=== PATIENT | female | born 1980 | race Caucasian/White ===

== ENCOUNTER 2016-11-19 09:31 | Emergency (ER) | payer BC, MEDICAID ==
[2016-11-19] MEDS ORDERED: Ketorolac 30 MG/ML SDV IVPUSH ONE (09:58)
--- NOTE | 2016-11-19 10:04 | EDM.PDOC ---
ED HPI GENERAL MEDICAL PROBLEM - General Chief Complaint: Lower Extremity Injury/Pain Stated Complaint: LT LEG HURTS Time Seen by Provider: 11/19/16 09:35 - History of Present Illness INITIAL COMMENTS - FREE TEXT/NARRATIVE: HISTORY AND PHYSICAL: History of present illness: This is a 36-year-old female presenting to the emergency department complaining of left lower leg pain. Patient tells me she has a history of a fractured tibia requiring surgical intervention last year. She tells me that she began to experience pain in the exact spot of the break yesterday. She'll be she is having difficulty bending her knee. She is having difficulty bearing weight. She denies any trauma to the region. She denies any numbness or tingling. She denies any fevers chills nausea or vomiting. She has no other complaints. Review of systems: As per history of present illness and below otherwise all systems reviewed and negative. Past medical history: As per history of present illness and as reviewed below otherwise noncontributory. Surgical history: As per history of present illness and as reviewed below otherwise noncontributory. Social history: No reported history of drug or alcohol abuse. Family history: As per history of present illness and as reviewed below otherwise noncontributory. Physical exam: HEENT: Atraumatic, normocephalic, pupils reactive, negative for conjunctival pallor or scleral icterus, mucous membranes moist, throat clear, neck supple, nontender, trachea midline. Lungs: Clear to auscultation, breath sounds equal bilaterally, chest nontender. Heart: S1S2, regular, negative for clicks, rubs, or JVD. Abdomen: Soft, nondistended, nontender. Negative for masses or hepatosplenomegaly. Negative for costovertebral tenderness. Pelvis: Stable nontender. Genitourinary: Deferred. Rectal: Deferred. Extremities:Tenderness to palpation of the lateral aspect of the leg. No knee joint effusion. No tenderness to palpation. Patient was able to flex her knee with assistance. Ankle and hip exam grossly normal. Neuro: Awake, alert, oriented. Cranial nerves II through XII unremarkable. Cerebellum unremarkable. Motor and sensory unremarkable throughout. Exam nonfocal. Diagnostics: Knee x-ray Tibia fibula x-ray CBC CMP Therapeutics: IM Toradol 30 mg. Impression: Cellulitis Plan: Discharged home. Follow-up with orthopedics Keflex 500 mg by mouth 3 times a day 10 days #30 tabs 0 refills. Follow-up with her primary care provider. left leg Pain Score (Numeric/FACES): 7 - Related Data Allergies Allergy/AdvReac Type Severity Reaction Status Date / Time No Known Allergies Allergy Verified 11/19/16 09:45 Home Meds: Home Meds Cephalexin [Keflex] 500 mg PO TID #30 cap 11/19/16 [Rx] Naproxen 500 mg PO BID #20 tablet 11/19/16 [Rx] Past Medical History - Past Health History Medical/Surgical History: Denies Medical/Surgical History - Past Surgical History Musculoskeletal Surgical History: Reports: Other (See Below) Other Musculoskeletal Surgeries/Procedures:: left leg sx Social & Family History - Family History Family Medical History: Noncontributory - Tobacco Use Smoking Status *Q: Never Smoker Years of Tobacco use: 14 Packs/Tins Daily: 0.5 - Recreational Drug Use Recreational Drug Use: No Review of Systems - Review of Systems Review Of Systems: See Below ED EXAM, GENERAL - Physical Exam Exam: See Below Course - Vital Signs Last Recorded V/S: Last Vital Signs Temp 36.2 C 11/19/16 09:46 Pulse 97 11/19/16 09:46 Resp 20 11/19/16 09:46 BP 112/75 11/19/16 09:46 Pulse Ox 98 11/19/16 09:46 - Orders/Labs/Meds Orders: Active Orders 24 hr Category Date Time Status CRP [C-REACTIVE PROTEIN] [CHEM] Stat Lab 11/19/16 10:50 Received SEDIMENTATION RATE AUTO [HEME] Stat Lab 11/19/16 10:50 Received Labs: Laboratory Tests 11/19/16 Range/Units 10:50 WBC 14.21 H (4.0-11.0) K/uL RBC 4.76 (4.30-5.90) M/uL Hgb 14.4 (12.0-16.0) g/dL Hct 42.7 (36.0-46.0) % MCV 89.7 (80.0-98.0) fL MCH 30.3 (27.0-32.0) pg MCHC 33.7 (31.0-37.0) g/dL RDW Std Deviation 43.3 (28.0-62.0) fl RDW Coeff of Sabine 13 (11.0-15.0) % Plt Count 294 (150-400) K/uL MPV 11.40 (7.40-12.00) fL Neut % (Auto) 59.8 (48.0-80.0) % Lymph % (Auto) 29.3 (16.0-40.0) % Band[place] % (Auto) 7.5 (0.0-15.0) % Eos % (Auto) 3.0 (0.0-7.0) % Baso % (Auto) 0.4 (0.0-1.5) % Neut # (Auto) 8.5 H (1.4-5.7) K/uL Lymph # (Auto) 4.2 H (0.6-2.4) K/uL Bandera # (Auto) 1.1 H (0.0-0.8) K/uL Eos # (Auto) 0.4 (0.0-0.7) K/uL Baso # (Auto) 0.1 (0.0-0.1) K/uL Meds: Medications Discontinued Medications Generic Name Dose Route Start Last Admin Trade Name Freq PRN Reason Stop Dose Admin Ketorolac Tromethamine 30 mg 11/19/16 09:58 11/19/16 10:23 Toradol IVPUSH 11/19/16 09:59 Not Given ONETIME ONE Ketorolac Tromethamine 30 mg 11/19/16 10:18 11/19/16 10:24 Toradol IM 11/19/16 10:19 30 mg ONETIME ONE Administration Departure - Departure Time of Disposition: 11:36 Disposition: Home, Self-Care 01 Condition: Good Clinical Impression: Cellulitis of knee, left - Discharge Information Prescriptions: Cephalexin [Keflex] 500 mg PO TID #30 cap Naproxen 500 mg PO BID #20 tablet Referrals: PCP,None [Primary Care Provider] - Clara Ennis MD [Physician] - Gerber Ogden MD [Physician] - Forms: ED Department Discharge Additional Instructions: The following information is given to patients seen in the emergency department who are being discharged to home. This information is to outline your options for follow-up care. We provide all patients seen in our emergency department with a follow-up referral. The need for follow-up, as well as the timing and circumstances, are variable depending upon the specifics of your emergency department visit. If you don't have a primary care physician on staff, we will provide you with a referral. We always advise you to contact your personal physician following an emergency department visit to inform them of the circumstance of the visit and for follow-up with them and/or the need for any referrals to a consulting specialist. The emergency department will also refer you to a specialist when appropriate. This referral assures that you have the opportunity for follow-up care with a specialist. All of these measure are taken in an effort to provide you with optimal care, which includes your follow-up. Under all circumstances we always encourage you to contact your private physician who remains a resource for coordinating your care. When calling for follow-up care, please make the office aware that this follow-up is from your recent emergency room visit. If for any reason you are refused follow-up, please contact the [facility] Emergency Department at and asked to speak to the emergency department charge nurse. It was found at today's visit that likely you have the soft tissue infection going on requiring antibiotics. Also recommend anti-inflammatories for this. Reportedly follow-up with orthopedic along with your primary care provider.. - My Orders Last 24 Hours: My Active Orders 11/19/16 10:50 CRP [C-REACTIVE PROTEIN] [CHEM] Stat SEDIMENTATION RATE AUTO [HEME] Stat - Assessment/Plan Last 24 Hours: My Active Orders 11/19/16 10:50 CRP [C-REACTIVE PROTEIN] [CHEM] Stat SEDIMENTATION RATE AUTO [HEME] Stat
[2016-11-19] MEDS ORDERED: Ketorolac 30 MG/ML SDV IM ONE (10:18)
--- NOTE | 2016-11-19 11:19 | CR ---
EXAMINATION: Left tibia and fibula and left knee HISTORY: Pain COMPARISON: CT dated 09/17/2015 TECHNIQUE: 2 views of the left tibia and fibula and 3 views of the left knee FINDINGS: There is no acute osseous abnormality, dislocation, or fracture. Again noted is screw and plate hardware fixating the tibial plateau. Overall position and alignment appear unchanged. No jan nt effusion or significant soft tissue swelling. Bone mineralization and joint spaces are grossly pr eserved. IMPRESSION: Stable screw and plate hardware fixation of the tibial plateau without an acute underlyi ng osseous abnormality.
[2016-11-19 14:53] VITALS: BP 117/64
== END 2016-11-19 12:02 | disposition home or self-care (01) ==
LOC: MW.ED 09:31
DX: L03.116 Cellulitis of left lower limb (principal); Z98.890 Other specified postprocedural states
CPT/HCPCS: 36415; 73562; 73590; 85025; 85652; 86140; 96372; 99283; J1885; 99284

== ENCOUNTER 2017-07-10 18:54 | Emergency (ER) | payer MEDICAID ==
[2017-07-10] MEDS ORDERED: Sodium Chloride 0.9% 2.5 ML Syringe FLUSH PRN (18:55)
[2017-07-10] MEDS ORDERED: Sodium Chloride 0.9% 10 ML Syringe FLUSH PRN (18:55)
[2017-07-10] MEDS ORDERED: Sodium Chloride 0.9% 1,000 ML IV ONE (19:37)
[2017-07-10 19:41] LABS: CHLORIDE,CL 105 mmol/L (98-107); SODIUM,NA 140 mmol/L (136-145)
--- NOTE | 2017-07-10 20:35 | EDM.PDOC ---
ED HPI GENERAL MEDICAL PROBLEM - General Chief Complaint: Neuro Symptoms/Deficits Stated Complaint: STROKE Time Seen by Provider: 07/10/17 20:35 Source of Information: Reports: Patient - History of Present Illness INITIAL COMMENTS - FREE TEXT/NARRATIVE: HISTORY AND PHYSICAL: History of present illness: [36-year-old female presents via EMS The patient lives with her brother who called EMS tonight as on his arrival home from work she was found in the bathroom somewhat incoherent and appeared she had fallen off the toilet stool, she arrived slightly before my shift started and Dr. Flores initiated a stroke code at that time. stroke score is 0, mental status is somewhat altered on arrival she appears intoxicated however no strength/motor deficits she is able to respond to questions denies hallucinations visual or audio No fever nausea vomiting chills sweats no chest pain shortness breath headache dizziness or palpitation no bowel or urine symptoms Last known well time 7:30 AM, niH stroke score 0, improving symptoms with hydration, clinically correlates with drug abuse use and dependence patient is known to abuse methamphetamine in the past but is believed to have been sober over the last 2 years With prolonged stay here in the ER patient is now alert interactive up and around the exam room she has been eating taco Arech[place] was delivered by her boyfriend and is in no distress she does not desire to stay she is in some denial and adamantly denial of any drug use whatsoever is offered observation and declines. ] Review of systems: As per history of present illness and below otherwise all systems reviewed and negative. Past medical history: As per history of present illness and as reviewed below otherwise noncontributory. Surgical history: As per history of present illness and as reviewed below otherwise noncontributory. Social history: No reported history of drug or alcohol abuse. Family history: As per history of present illness and as reviewed below otherwise noncontributory. Physical exam: HEENT: Atraumatic, normocephalic, pupils reactive, negative for conjunctival pallor or scleral icterus, mucous membranes moist, throat clear, neck supple, nontender, trachea midline. Lungs: Clear to auscultation, breath sounds equal bilaterally, chest nontender. Heart: S1S2, regular, negative for clicks, rubs, or JVD. Abdomen: Soft, nondistended, nontender. Negative for masses or hepatosplenomegaly. Negative for costovertebral tenderness. Pelvis: Stable nontender. Genitourinary: Deferred. Rectal: Deferred. Extremities: Atraumatic, negative for cords or calf pain. Neurovascular unremarkable. Neuro: Awake, alert, oriented. Cranial nerves II through XII unremarkable. Cerebellum unremarkable. Motor and sensory unremarkable throughout. Exam nonfocal. Diagnostics: [CBC CMP UA drug screen INR EKG Chest [address] no contrast ] Therapeutics: [ liter normal saline bolus Normal saline 1 25 mL per hour ] Impression: [ altered mental status-resolved Polysubstance abuse ] Definitive disposition and diagnosis as appropriate pending reevaluation and review of above. - Related Data Allergies Allergy/AdvReac Type Severity Reaction Status Date / Time No Known Allergies Allergy Verified 07/10/17 19:17 Home Meds: Home Meds . [No Known Home Meds] 07/10/17 [History] Past Medical History - Past Health History Medical/Surgical History: Denies Medical/Surgical History [employer] History: Reports: - Past Surgical History Musculoskeletal Surgical History: Reports: Other (See Below) Other Musculoskeletal Surgeries/Procedures:: left leg sx Social & Family History - Family History Family Medical History: Noncontributory - Tobacco Use Smoking Status *Q: Current Every Day Smoker Years of Tobacco use: 18 Packs/Tins Daily: 1 - Caffeine Use Caffeine Use: Reports: Coffee, Soda - Recreational Drug Use Recreational Drug Use: Yes Drug Use in Last 12 Months: No Recreational Drug Type: Reports: Methamphetamine Recreational Drug Use Frequency: Not Used In Over 6 Months ED ROS GENERAL - Review of Systems Review Of Systems: ROS reveals no pertinent complaints other than HPI. ED EXAM, GENERAL - Physical Exam Exam: See Below Course - Vital Signs Last Recorded V/S: Last Vital Signs Temp 96.0 F 07/10/17 19:10 Pulse 74 07/10/17 19:10 Resp 16 07/10/17 19:10 BP 150/98 H 07/10/17 19:10 Pulse Ox 99 07/10/17 19:10 - Orders/Labs/Meds Orders: Active Orders 24 hr Category Date Time Status Assess Neurological Status [RC] ASDIRECTED Care 07/10/17 18:55 Active Bedrest [RC] ASDIRECTED Care 07/10/17 18:55 Active Blood Glucose Check, Bedside [RC] STAT Care 07/10/17 18:55 Active Cardiac Monitoring [RC] . DIRECTED Care 07/10/17 18:55 Active EKG Documentation Completion [RC] STAT Care 07/10/17 18:55 Active Height and Weight [RC] UPON Care 07/10/17 18:55 Active Initiate Acute Stroke Protocol [RC] STAT Care 07/10/17 18:55 Active NIH Stroke Scale [RC] ASDIRECTED Care 07/10/17 18:55 Active Nursing Bedside Swallow Screen [RC] ASDIRECTED Care 07/10/17 18:55 Active Oxygen Therapy [RC] ASDIRECTED Care 07/10/17 18:55 Active Stroke Education, General [RC] Click to Edit Care 07/10/17 18:55 Active Vital Signs [RC] Q15M Care 07/10/17 18:55 Active Chest 1V Frontal [CR] Stat Exams 07/10/17 19:38 Taken Head wo Cont [CT] Stat Exams 07/10/17 18:55 Taken CULTURE BLOOD [BC] Stat Lab 07/10/17 20:36 Received CULTURE BLOOD [BC] Stat Lab 07/10/17 20:47 Results DRUG SCREEN, URINE [URCHEM] Stat Lab 07/10/17 20:10 Ordered Sodium Chloride 0.9% [Saline Flush] Med 07/10/17 18:55 Active 10 ml FLUSH ASDIRECTED PRN Sodium Chloride 0.9% [Saline Flush] Med 07/10/17 18:55 Active 2.5 ml FLUSH ASDIRECTED PRN Blood Culture x2 Reflex Set [OM.PC] Stat Oth 07/10/17 19:28 Ordered Peripheral IV Insertion Adult [OM.PC] Stat Oth 07/10/17 18:55 Ordered Peripheral IV Insertion Adult [OM.PC] Stat Oth 07/10/17 18:55 Ordered Medication Orders Sodium Chloride (Saline Flush) 10 ml FLUSH ASDIRECTED PRN PRN Reason: Keep Vein Open Sodium Chloride (Saline Flush) 2.5 ml FLUSH ASDIRECTED PRN PRN Reason: Keep Vein Open Labs: Laboratory Tests 07/10/17 07/10/17 07/10/17 Range/Units 19:07 19:07 19:07 WBC 13.77 H (4.0-11.0) K/uL RBC 5.06 (4.30-5.90) M/uL Hgb 15.4 (12.0-16.0) g/dL Hct 45.4 (36.0-46.0) % MCV 89.7 (80.0-98.0) fL MCH 30.4 (27.0-32.0) pg MCHC 33.9 (31.0-37.0) g/dL RDW Std Deviation 45.3 (28.0-62.0) fl RDW Coeff of Sabine 14 (11.0-15.0) % Plt Count 317 (150-400) K/uL MPV 11.40 (7.40-12.00) fL Neut % (Auto) 68.1 (48.0-80.0) % Lymph % (Auto) 22.7 (16.0-40.0) % Desha % (Auto) 7.1 (0.0-15.0) % Eos % (Auto) 1.8 (0.0-7.0) % Baso % (Auto) 0.3 (0.0-1.5) % Neut # (Auto) 9.4 H (1.4-5.7) K/uL Lymph # (Auto) 3.1 H (0.6-2.4) K/uL Desha # (Auto) 1.0 H (0.0-0.8) K/uL Eos # (Auto) 0.3 (0.0-0.7) K/uL Baso # (Auto) 0.0 (0.0-0.1) K/uL Nucleated RBC % 0.0 /100WBC Nucleated RBCs # 0 K/uL INR 1.01 APTT 29.0 (18.6-31.3) SEC Sodium 140 (136-145) mmol/L Potassium 3.8 (3.5-5.1) mmol/L Chloride 105 (98-107) mmol/L Carbon Dioxide 28.1 (21.0-32.0) mmol/L BUN 11 (7.0-18.0) mg/dL Creatinine 0.8 (0.6-1.0) mg/dL Est Cr Clr Drug Dosing TNP Estimated GFR (MDRD) > 60.0 ml/min Glucose 126 H (74-106) mg/dL Calcium 9.1 (8.5-10.1) mg/dL Total Bilirubin 0.7 (0.2-1.0) mg/dL AST 21 (15-37) IU/L ALT 23 (14-63) IU/L Alkaline Phosphatase 72 (46-116) U/L Creatine Kinase (26-308) U/L Troponin I < 0.050 (0.000-0.056) ng/mL Total Protein 7.7 (6.4-8.2) g/dL Albumin 3.9 (3.4-5.0) g/dL Globulin 3.8 H (2.0-3.5) g/dL Albumin/Globulin Ratio 1.0 L (1.3-2.8) TSH 3rd Generation 2.17 (0.36-3.74) uIU/mL Salicylates 2.3 (0-20) mg/dL Urine Opiates Screen (NEGATIVE) Ur Oxycodone Screen (NEGATIVE) Urine Methadone Screen (NEGATIVE) Acetaminophen 0.0 ug/mL Ur Barbiturates Screen (NEGATIVE) Ur Phencyclidine Scrn (NEGATIVE) Ur Amphetamine Screen (NEGATIVE) U Methamphetamines Scrn (NEGATIVE) U Benzodiazepines Scrn (NEGATIVE) U Cocaine Metab Screen (NEGATIVE) U Marijuana (THC) Screen (NEGATIVE) Ethyl Alcohol < 3.0 mg/dL 07/10/17 07/10/17 Range/Units 19:07 20:10 WBC (4.0-11.0) K/uL RBC (4.30-5.90) M/uL Hgb (12.0-16.0) g/dL Hct (36.0-46.0) % MCV (80.0-98.0) fL MCH (27.0-32.0) pg MCHC (31.0-37.0) g/dL RDW Std Deviation (28.0-62.0) fl RDW Coeff of Sabine (11.0-15.0) % Plt Count (150-400) K/uL MPV (7.40-12.00) fL Neut % (Auto) (48.0-80.0) % Lymph % (Auto) (16.0-40.0) % Desha % (Auto) (0.0-15.0) % Eos % (Auto) (0.0-7.0) % Baso % (Auto) (0.0-1.5) % Neut # (Auto) (1.4-5.7) K/uL Lymph # (Auto) (0.6-2.4) K/uL Desha # (Auto) (0.0-0.8) K/uL Eos # (Auto) (0.0-0.7) K/uL Baso # (Auto) (0.0-0.1) K/uL Nucleated RBC % /100WBC Nucleated RBCs # K/uL INR APTT (18.6-31.3) SEC Sodium (136-145) mmol/L Potassium (3.5-5.1) mmol/L Chloride (98-107) mmol/L Carbon Dioxide (21.0-32.0) mmol/L BUN (7.0-18.0) mg/dL Creatinine (0.6-1.0) mg/dL Est Cr Clr Drug Dosing Estimated GFR (MDRD) ml/min Glucose (74-106) mg/dL Calcium (8.5-10.1) mg/dL Total Bilirubin (0.2-1.0) mg/dL AST (15-37) IU/L ALT (14-63) IU/L Alkaline Phosphatase (46-116) U/L Creatine Kinase 130 (26-308) U/L Troponin I (0.000-0.056) ng/mL Total Protein (6.4-8.2) g/dL Albumin (3.4-5.0) g/dL Globulin (2.0-3.5) g/dL Albumin/Globulin Ratio (1.3-2.8) TSH 3rd Generation (0.36-3.74) uIU/mL Salicylates (0-20) mg/dL Urine Opiates Screen NEGATIVE (NEGATIVE) Ur Oxycodone Screen NEGATIVE (NEGATIVE) Urine Methadone Screen NEGATIVE (NEGATIVE) Acetaminophen ug/mL Ur Barbiturates Screen NEGATIVE (NEGATIVE) Ur Phencyclidine Scrn NEGATIVE (NEGATIVE) Ur Amphetamine Screen POSITIVE (NEGATIVE) U Methamphetamines Scrn POSITIVE (NEGATIVE) U Benzodiazepines Scrn NEGATIVE (NEGATIVE) U Cocaine Metab Screen NEGATIVE (NEGATIVE) U Marijuana (THC) Screen POSITIVE (NEGATIVE) Ethyl Alcohol mg/dL Meds: Medications Generic Name Dose Route Start Last Admin Trade Name Freq PRN Reason Stop Dose Admin Sodium Chloride 10 ml 07/10/17 18:55 Saline Flush FLUSH ASDIRECTED PRN Keep Vein Open Sodium Chloride 2.5 ml 07/10/17 18:55 Saline Flush FLUSH ASDIRECTED PRN Keep Vein Open Discontinued Medications Generic Name Dose Route Start Last Admin Trade Name Jumana PRN Reason Stop Dose Admin Sodium Chloride 1,000 mls @ 999 mls/hr 07/10/17 19:37 07/10/17 19:52 Normal Saline IV 07/10/17 20:37 999 mls/hr STAT ONE Administration Departure - Departure Time of Disposition: 21:45 Disposition: Home, Self-Care 01 Condition: Fair Clinical Impression: Polysubstance abuse - Discharge Information Referrals: PCP,None [Primary Care Provider] - Forms: ED Department Discharge Additional Instructions: The following information is given to patients seen in the emergency department who are being discharged to home. This information is to outline your options for follow-up care. We provide all patients seen in our emergency department with a follow-up referral. The need for follow-up, as well as the timing and circumstances, are variable depending upon the specifics of your emergency department visit. If you don't have a primary care physician on staff, we will provide you with a referral. We always advise you to contact your personal physician following an emergency department visit to inform them of the circumstance of the visit and for follow-up with them and/or the need for any referrals to a consulting specialist. The emergency department will also refer you to a specialist when appropriate. This referral assures that you have the opportunity for follow-up care with a specialist. All of these measure are taken in an effort to provide you with optimal care, which includes your follow-up. Under all circumstances we always encourage you to contact your private physician who remains a resource for coordinating your care. When calling for follow-up care, please make the office aware that this follow-up is from your recent emergency room visit. If for any reason you are refused follow-up, please contact the [facility] emergency department at and asked to speak to the emergency department charge nurse. - My Orders Last 24 Hours: My Active Orders 07/10/17 19:28 Blood Culture x2 Reflex Set [OM.PC] Stat 07/10/17 19:38 Chest 1V Frontal [CR] Stat 07/10/17 20:36 CULTURE BLOOD [BC] Stat 07/10/17 20:47 CULTURE BLOOD [BC] Stat - Assessment/Plan Last 24 Hours: My Active Orders 07/10/17 19:28 Blood Culture x2 Reflex Set [OM.PC] Stat 07/10/17 19:38 Chest 1V Frontal [CR] Stat 07/10/17 20:36 CULTURE BLOOD [BC] Stat 07/10/17 20:47 CULTURE BLOOD [BC] Stat
[2017-07-10 22:25] VITALS: BP 106/75
--- NOTE | 2017-07-12 13:04 | CT ---
EXAM DATE: 07/10/17 PATIENT'S AGE: 36 Patient: KAYLYN NORWOOD Facility: [facility], [place], [place] : 07/10/2016 Study: CT Head STROKE PROTOCOL -07/10/2017 6:58:39 PM Ordering Physician: KEEGAN Final Report: INDICATION: Altered mental status. TECHNIQUE: Noncontrast CT of the brain was performed with images acquired from skull base to vertex. COMPARISON: None available. FINDINGS: There is no acute intracranial hemorrhage. Ventricles are of normal size and morphology. No mass effect or midline shift is present. The valadez-white matter differentiation is normal. The visualized portions of the orbits are normal. The visualized portions of the mastoids are normal. The visualized portions of the paranasal sinuses are normal. No fractures are identified. IMPRESSION: No acute intracranial abnormality. Please note that all CT scans at this facility use dose modulation, iterative reconstruction, and/or weight-based dosing when appropriate to reduce radiation dose to as low as reasonably achievable. Dictated by Jerrod Gibbons MD @ Jul 10 2017 6:58PM (Electronic Signature) Report Signed by Proxy. MTDD
--- NOTE | 2017-07-12 13:05 | CR ---
EXAM DATE: 07/10/17 PATIENT'S AGE: 36 Patient: KAYLYN NORWOOD Facility: [place], [place] Site . Site : [id number] Study: XRay Chest [id number] 8:07:38 PM Ordering Physician: Bentley Tobias Final Report: INDICATION: Pain. Stroke. Code. TECHNIQUE: AP image of the chest. COMPARISON: None. FINDINGS: Lungs and pleural spaces clear. Heart, mediastinum and pulmonary vessels normal. No significant osseous abnormality. IMPRESSION: Negative chest. Dictated by Nadeem Birch MD @ Jul 10 2017 8:18PM (Electronic Signature) Report Signed by Proxy. DARLYN
== END 2017-07-10 21:54 | disposition home or self-care (01) ==
LOC: MW.ED 18:54
DX: R41.82 Altered mental status, unspecified (principal); F17.210 Nicotine dependence, cigarettes, uncomplicated; F19.10 Other psychoactive substance abuse, uncomplicated
CPT/HCPCS: 36415; 70450; 71045; 80053; 80305; 82550; 84443; 84484; 85025; 85610; 85730; 87040; 93005; 96360; 99285; G0480; J7040; 99284

== ENCOUNTER 2019-04-17 19:23 | Emergency (ER) | payer OTHER ==
[2019-04-17] MEDS ORDERED: Aspirin 81 MG Tab.Chew PO ONE (19:34)
--- NOTE | 2019-04-17 19:40 | EDM.PDOC ---
ED HPI GENERAL MEDICAL PROBLEM - General Chief Complaint: Chest Pain Stated Complaint: SPOKE TO NURSE Time Seen by Provider: 04/17/19 19:36 Source of Information: Reports: Patient History Limitations: Reports: No Limitations - History of Present Illness INITIAL COMMENTS - FREE TEXT/NARRATIVE: This 38-year-old female presents to the emergency room with a history of chest pain. Patient states she has pain in the middle of her chest since 7 AM this morning. Denies any previous history of cardiac disease. Patient denies high blood pressure, denies diabetes, denies family history of heart disease. Onset: Today Duration: Hour(s): Location: Reports: Chest Severity: Mild Improves with: Reports: None Worsens with: Reports: None Context: Reports: Activity Associated Symptoms: Reports: No Other Symptoms, Nausea/Vomiting chest Pain Score (Numeric/FACES): 7 - Related Data Allergies Allergy/AdvReac Type Severity Reaction Status Date / Time No Known Allergies Allergy Verified 04/17/19 19:36 Home Meds: Home Meds . [No Known Home Meds] 07/10/17 [History] Past Medical History - Past Health History Medical/Surgical History: Denies Medical/Surgical History PHYSICIAN PEDIATRICIAN History: Reports: - Past Surgical History Musculoskeletal Surgical History: Reports: Other (See Below) Other Musculoskeletal Surgeries/Procedures:: left leg sx Social & Family History - Family History Family Medical History: Noncontributory - Caffeine Use Caffeine Use: Reports: Coffee, Soda ED ROS GENERAL - Review of Systems Review Of Systems: Comprehensive ROS is negative, except as noted in HPI. Constitutional: Reports: No Symptoms HEENT: Reports: No Symptoms Respiratory: Reports: No Symptoms Cardiovascular: Reports: Chest Pain Endocrine: Reports: No Symptoms GI/Abdominal: Reports: No Symptoms : Reports: No Symptoms Musculoskeletal: Reports: No Symptoms Skin: Reports: No Symptoms Neurological: Reports: No Symptoms Psychiatric: Reports: No Symptoms Hematologic/Lymphatic: Reports: No Symptoms Immunologic: Reports: No Symptoms ED EXAM, GENERAL - Physical Exam Exam: See Below Exam Limited By: No Limitations General Appearance: Alert, WD/WN, No Apparent Distress Eye Exam: Bilateral Eye: Normal Fundi, Normal Inspection Nose: Normal Inspection, Normal Mucosa, No Blood Throat/Mouth: Normal Inspection, Normal Lips, Normal Teeth, Normal Oropharynx, Normal Voice, No Airway Compromise Head: Atraumatic, Normocephalic Neck: Normal Inspection Respiratory/Chest: No Respiratory Distress, Lungs Clear, Normal Breath Sounds, No Accessory Muscle Use, Chest Non-Tender Cardiovascular: Normal Peripheral Pulses, Regular Rate, Rhythm, No Gallop, No JVD, No Murmur GI/Abdominal: Normal Bowel Sounds, Soft, Non-Tender, No Organomegaly, No Distention, No Abnormal Bruit, No Mass (Female) Exam: Deferred Rectal (Female) Exam: Deferred Back Exam: Normal Inspection, Full Range of Motion Extremities: Normal Inspection, Normal Range of Motion, Non-Tender, No Pedal Edema, Normal Capillary Refill EKG INTERPRETATION EKG Interpretation Comments: Is not acute rate is normal patient having no signs of an infarct or ischemia Course - Vital Signs Text/Narrative:: Is coming the emergency room with chest pain since 7:00 in the morning. Patient had cardiac enzymes performed which are normal. Patient has a chest x- ray which is normal. Patient however does have a slight leukocytosis. Will be discharged back to detention no further treatment needed Last Recorded V/S: Last Vital Signs Temp 97.5 F 04/17/19 19:25 Pulse 75 04/17/19 19:59 Resp 18 04/17/19 19:25 BP 117/81 04/17/19 19:59 Pulse Ox 97 04/17/19 19:25 - Orders/Labs/Meds Orders: Active Orders 24 hr Category Date Time Status EKG Documentation Completion [RC] STAT Care 04/17/19 19:25 Active Labs: Laboratory Tests 04/17/19 04/17/19 Range/Units 19:47 19:47 WBC 14.34 H (4.0-11.0) K/uL RBC 4.98 (4.30-5.90) M/uL Hgb 14.6 (12.0-16.0) g/dL Hct 43.7 (36.0-46.0) % MCV 87.8 (80.0-98.0) fL MCH 29.3 (27.0-32.0) pg MCHC 33.4 (31.0-37.0) g/dL RDW Std Deviation 42.8 (28.0-62.0) fl RDW Coeff of Sabine 13 (11.0-15.0) % Plt Count 326 (150-400) K/uL MPV 11.80 (7.40-12.00) fL Neut % (Auto) 57.1 (48.0-80.0) % Lymph % (Auto) 33.9 (16.0-40.0) % Sullivan % (Auto) 6.7 (0.0-15.0) % Eos % (Auto) 1.9 (0.0-7.0) % Baso % (Auto) 0.4 (0.0-1.5) % Neut # (Auto) 8.2 H (1.4-5.7) K/uL Lymph # (Auto) 4.9 H (0.6-2.4) K/uL Sullivan # (Auto) 1.0 H (0.0-0.8) K/uL Eos # (Auto) 0.3 (0.0-0.7) K/uL Baso # (Auto) 0.1 (0.0-0.1) K/uL Nucleated RBC % 0.0 /100WBC Nucleated RBCs # 0 K/uL Troponin I < 0.050 (0.000-0.056) ng/mL Meds: Medications Discontinued Medications Generic Name Dose Route Start Last Admin Trade Name Freq PRN Reason Stop Dose Admin Aspirin 324 mg 04/17/19 19:34 04/17/19 19:41 Aspirin PO 04/17/19 19:35 324 mg ONETIME ONE Administration Departure - Departure Time of Disposition: 20:50 Disposition: Home, Self-Care 01 Clinical Impression: Costochondritis Instructions: Costochondritis, [id number] Referrals: PCP,Unobtain [Primary Care Provider] - Forms: ED Department Discharge Sepsis Event Note - Focused Exam Vital Signs: Vital Signs Temp Pulse Resp BP Pulse Ox 04/17/19 19:59 75 117/81 04/17/19 19:25 97.5 F 75 18 143/111 H 97 Date Exam was Performed: 04/17/19 Time Exam was Performed: 20:49 - My Orders Last 24 Hours: My Active Orders 04/17/19 19:25 EKG Documentation Completion [RC] STAT - Assessment/Plan Last 24 Hours: My Active Orders 04/17/19 19:25 EKG Documentation Completion [RC] STAT
--- NOTE | 2019-04-17 20:30 | CR ---
Chest: Portable view of the chest was obtained. Comparison: No previous chest x-ray. Heart size and mediastinum are within normal limits for portable technique. Lungs are clear with no acute parenchymal change. Minimal scoliosis is noted within the spine. Bony structures are otherwise grossly intact. Impression: 1. Nothing acute is appreciated on portable chest x-ray. Diagnostic code #2 This report was dictated in [place] Standard Time
[2019-04-17 20:54] VITALS: BP 135/92; PULSE 77
== END 2019-04-17 21:04 | disposition home or self-care (01) ==
LOC: MW.ED 19:23
DX: M94.0 Chondrocostal junction syndrome [Tietze] (principal)
CPT/HCPCS: 36415; 71045; 84484; 85025; 93005; 99285; A9270; 99283

== ENCOUNTER 2022-02-24 18:39 | Emergency (ER) | payer MEDICAID ==
[2022-02-24] MEDS ORDERED: Amoxicillin/Clavulanate K 875-125 MG Tab PO ONE (19:50)
[2022-02-24] MEDS ORDERED: Lidocaine 2% Viscous Solution 15 ML UD PO ONE (20:09)
[2022-02-24] MEDS ORDERED: Benzocaine 20% Topical Spray UD MUCMEM ONE (20:09)
[2022-02-24 20:21] VITALS: BP 110/72; PULSE 72
== END 2022-02-24 20:20 | disposition home or self-care (01) ==
LOC: MW.ED 18:39
DX: K04.7 Periapical abscess without sinus (principal); Z79.899 Other long term (current) drug therapy
CPT/HCPCS: 99282; A9270

== ENCOUNTER 2022-06-23 16:21 | Emergency (ER) | payer MEDICAID ==
[2022-06-23] MEDS ORDERED: Ketorolac 30 MG/ML SDV IVPUSH ONE (16:56)
[2022-06-23] MEDS ORDERED: Ondansetron 4 MG/2 ML SDV IVPUSH ONE (16:56)
[2022-06-23] MEDS ORDERED: Sodium Chloride 0.9% 1,000 ML IV ONE (16:56)
[2022-06-23 17:23] LABS: CORONAVIRUS COVID-19 NAA NEGATIVE (NEGATIVE); INFLUENZA A NAA NEGATIVE (NEGATIVE); INFLUENZA B NAA NEGATIVE (NEGATIVE)
[2022-06-23 18:12] LABS: POTASSIUM,K 4.3 mmol/L (3.5-5.1)
[2022-06-23] MEDS ORDERED: Iopamidol 755 MG/ML 500 ML Multipack Bottle IVPUSH ONE (18:21)
[2022-06-23 19:03] LABS: LIPASE 51 U/L (73-393)
[2022-06-23] MEDS ORDERED: Dicyclomine 10 MG Cap PO ONE (19:39)
[2022-06-23 22:24] VITALS: BP 135/86; PULSE 89
== END 2022-06-23 19:54 | disposition home or self-care (01) ==
LOC: MW.ED 16:21
DX: K52.9 Noninfective gastroenteritis and colitis, unspecified (principal); Z72.0 Tobacco use; Z20.822 Contact with and (suspected) exposure to COVID-19
CPT/HCPCS: 0240U; 36415; 71045; 74177; 80053; 81001; 83690; 84484; 84703; 85025; 93005; 96361; 96374; 96375; 99284; A9270; J1885; J2405; J7030; Q9967

== ENCOUNTER 2022-07-20 21:34 | Emergency (ER) | payer MEDICAID | END 2022-07-20 22:48 | disposition left against medical advice (07) | LOC: MW.ED 21:34 | DX: Z53.21 Procedure and treatment not carried out due to patient leaving prior to being seen by health care provider (principal) ==

== ENCOUNTER 2022-10-12 06:41 | Day surgery (SDC) | payer MEDICAID ==
[~2022-10-12 06:41] MED LIST: Lactated Ringers 1,000 ML IV SCH; cefOXitin 2 GM in Sodium Chloride 0.9% 100 ML IV ONE
[2022-10-12] MEDS ORDERED: HYDROmorphone 1 MG/ML Syringe IVPUSH PRN (07:19)
[2022-10-12] MEDS ORDERED: droPERidol 5 MG/2 ML SDV IVPUSH PRN (07:19)
[2022-10-12] MEDS ORDERED: Morphine 2 MG/ML SYRINGE IVPUSH PRN (07:19)
[2022-10-12] MEDS ORDERED: Ondansetron 4 MG/2 ML SDV IVPUSH PRN (07:19)
[2022-10-12] MEDS ORDERED: Albuterol 0.083% 2.5 MG/3 ML Neb Soln NEB PRN (07:19)
[2022-10-12] MEDS ORDERED: Naloxone 0.4 MG/ML SDV IVPUSH PRN (07:19)
[2022-10-12] MEDS ORDERED: Metoclopramide 10 MG/2 ML SDV IVPUSH PRN (07:19)
[2022-10-12] MEDS ORDERED: fentaNYL 50 MCG/ML SDV IVPUSH PRN (07:19)
[2022-10-12] MEDS ORDERED: Famotidine 20 MG/2 ML SDV ONE (07:22)
[2022-10-12] MEDS ORDERED: Ropivacaine 0.5% 5 MG/ML 30 ML SDV ONE (07:22)
[2022-10-12] MEDS ORDERED: Bupivacaine 0.5% 30 ML SDV ONE (07:25)
[2022-10-12] MEDS ORDERED: Propofol 200 MG/20 ML SDV ONE ×3 (07:25→08:41)
[2022-10-12] MEDS ORDERED: Rocuronium Bromide 50 MG/5 ML Syringe ONE (07:25)
[2022-10-12] MEDS ORDERED: Sugammadex Sodium 200 MG/2 ML VIAL ONE (07:25)
[2022-10-12] MEDS ORDERED: ceFAZolin 1 GM Vial ONE (07:25)
[2022-10-12] MEDS ORDERED: Lidocaine 2% 5 ML SDV ONE (07:25)
[2022-10-12] MEDS ORDERED: fentaNYL 100 MCG/2 ML SDV ONE (07:25)
[2022-10-12] MEDS ORDERED: Dexamethasone 4 MG/ML 5 ML MDV ONE (07:25)
[2022-10-12] MEDS ORDERED: Dexmedetomidine 200 MCG/2 ML SDV ONE (07:41)
[2022-10-12] MEDS ORDERED: Water For Injection, Sterile 20 ML ONE (07:41)
[2022-10-12] MEDS ORDERED: HYDROmorphone 2 MG/ML Syringe ONE (08:41)
[2022-10-12] MEDS ORDERED: Morphine 4 MG/ML Syringe IVPUSH PRN (09:36)
[2022-10-12] MEDS ORDERED: Acetaminophen/HYDROcodone 325-5 MG Tab PO PRN (09:36)
[2022-10-12] MEDS ORDERED: Lactated Ringers 1,000 ML IV SCH (09:45)
[2022-10-12 12:21] VITALS: BP 133/88; PULSE 72
== END 2022-10-12 11:07 | disposition home or self-care (01) ==
LOC: MW.SDS 06:41
PROVIDERS: ATTEND Surgery
DX: K80.10 Calculus of gallbladder with chronic cholecystitis without obstruction (principal); K82.8 Other specified diseases of gallbladder; K21.9 Gastro-esophageal reflux disease without esophagitis; M54.9 Dorsalgia, unspecified; G89.29 Other chronic pain; M54.2 Cervicalgia; F17.210 Nicotine dependence, cigarettes, uncomplicated; Z98.890 Other specified postprocedural states; Z83.79 Family history of other diseases of the digestive system; Z79.899 Other long term (current) drug therapy
CPT/HCPCS: 47562; 64488; 81025; J0131; J1100; J1170; J2704; J2795; J3010; J3490; J7030; J7120; J0690